=== PATIENT | female | born 1990 | race Caucasian/White ===

== ENCOUNTER 2017-06-24 11:53 | Outpatient (CLI) | payer OTHER ==
[~2017-06-24] VITALS: Ht 152.4 cm; Wt 48.0 kg
[2017-06-24 12:56] LABS: BASOPHIL (%) 0.1 % (0-1); EOSINOPHIL (%) 0 % (0-5); HEMATOCRIT 28.9 % (36.0-46.0); HEMOGLOBIN 10.1 G/DL (11.9-15.5); IMMATURE GRANULOCYTE (%) 0.4 % (0.0-0.7); LYMPHOCYTE (%) 10.1 % (15-42); LYMPHOCYTE COUNT 1.1 K/uL (1.0-2.8); MCH 29.5 PG (29.0-34.0); MCHC 34.9 G/DL (30.0-36.0); MCV 84.5 FL (83-99); MONOCYTE COUNT 0.3 K/uL (0-0.8); NEUTROPHIL (%) 86.4 % (45-76); NEUTROPHIL COUNT 9.6 K/uL (1.8-6.4); PLATELET COUNT 234 K/uL (156-360); RBC DIS.WIDTH-CV 12.2 % (11.8-14.6); RBC DIS.WIDTH-SD 37.1 % (39-53); RED BLOOD COUNT 3.42 M/uL (3.80-5.20); WHITE BLOOD COUNT 11.2 K/uL (4.1-10.2)
[2017-06-24 13:00] LABS: CHLORIDE 102 mEq/L (99-109); POTASSIUM 3.5 mEq/L (3.7-5.4); SODIUM 137 mEq/L (136-147)
[2017-06-24 13:01] LABS: GLUCOSE 100 mg/dL (70-99)
[2017-06-24 13:05] LABS: CREATININE 0.6 mg/dL (0.6-1.3); GFR ESTIMATE (CALCULATED) > 59 mL/min/
[2017-06-24 13:06] LABS: UREA NITROGEN (BUN) 7 mg/dL (9-23)
[2017-06-24] MEDS ORDERED: ZOFRAN4 MG PO (14:24)
[2017-06-24 14:50] VITALS: BP 126/79
[2017-06-24] MEDS ORDERED: PEPCID20 MG PO (17:19)
[2017-06-24 18:32] LABS: AMPHETAMINE NEGATIVE (500 ng/mL); BARBITURATES NEGATIVE (200 ng/mL); BENZODIAZEPINES NEGATIVE (150 ng/mL); BUPRENORPHINE PRESUMPTIVE POSITIVE (10 ng/mL); COCAINE NEGATIVE (150 ng/mL); METHADONE NEGATIVE (200 ng/mL); METHAMPHETAMINE NEGATIVE (500 ng/mL); OPIATES (MORPHINE) NEGATIVE (100 ng/mL); OXYCODONE PRESUMPTIVE POSITIVE (100 ng/mL); PHENCYCLIDINE NEGATIVE (25 ng/mL); PROPOXYPHENE NEGATIVE (300 ng/mL); THC CANNABINOIDS PRESUMPTIVE POSITIVE (50 ng/mL); TRICYCLIC ANTIDEPRESSANTS NEGATIVE (300 ng/mL)
== END 2017-06-24 18:00 | disposition home or self-care (01) ==
LOC: EME 11:53 → LDRP-OP 11:53 → EME 14:47 → EDSTATUS 15:03 → 2WEST 15:04
PROVIDERS: Advanced Practice Midwife; Emergency Medicine
DX: O26.893 Other specified pregnancy related conditions, third trimester (principal); R10.10 Upper abdominal pain, unspecified; O99.613 Diseases of the digestive system complicating pregnancy, third trimester; K21.9 Gastro-esophageal reflux disease without esophagitis; O99.322 Drug use complicating pregnancy, second trimester; F12.90 Cannabis use, unspecified, uncomplicated; O99.343 Other mental disorders complicating pregnancy, third trimester; F41.9 Anxiety disorder, unspecified; F32.9 Major depressive disorder, single episode, unspecified; O99.333 Smoking (tobacco) complicating pregnancy, third trimester; F17.200 Nicotine dependence, unspecified, uncomplicated; Z3A.33 33 weeks gestation of pregnancy
CPT/HCPCS: 59025; 80048; 81003; 84999; 85025; G0378; J2405; J7030